=== PATIENT | male | born 1980 | race Caucasian/White ===

== ENCOUNTER 2019-06-10 16:47 | Emergency (ER) | payer OTHER, SELFPAY ==
[2019-06-10 16:49] VITALS: BP 129/84; PULSE 75; RESP 14; TEMP 36.3; O2SAT 100; BMI 25.2
--- NOTE | 2019-06-10 17:04 | RAD_ITS ---
STUDY: X-RAY - LEFT HAND REASON FOR EXAM: Male, 39 years old. Injury of the thumb, laceration TECHNIQUE: 3 view(s) of the hand. COMPARISON: None. FINDINGS: Normal radiocarpal articulation. Normal distal radioulnar joint. Normal visualized carpal bones. Normal carpal articulations Normal carpometacarpal articulation of the thumb. Normal second through fifth carpometacarpal joints. Normal metacarpi. Normal metacarpophalangeal joint of the thumb. Normal interphalangeal joint of the thumb. Normal proximal and distal phalanges of the thumb. Normal metacarpophalangeal joints of the second through fifth fingers. Normal proximal and distal interphalangeal joints of the second through fifth fingers. Normal phalanges of the second through fifth fingers. There is soft tissue swelling and laceration of the first digit. RAD/Hand Min 3 Views IMPRESSION: First digit/thumb soft tissue injury. No demonstrated fracture. Electronically Signed: Teddy Duran MD ([place]) at 17:32 EST , Service support ,
[2019-06-10] MEDS: Diphth,Pertuss(Acell),Tet Vac 0.5 ML Vial IM (18:01)
--- NOTE | 2019-06-10 18:13 | ED.DCSUM_ITS ---
History of Present Illness Informant: Patient, Significant Other Occurred: Today Mechanism/Context: Injury, Puncture Wound Onset: Today Context: Sudden Onset Timing: Continuous Quality of Pain: Sharp Location: left thumb Current Severity: Moderate Maximum Severity: Severe Worsened by: Movement Relieved by: Nothing Associated Symptoms: Negative for: Parasthesia, Weakness, Loss of Funtion Narrative: 39-year-old male who is right-hand dominant presents with a laceration to his left thumb that occurred just prior to arrival with a wood splitter. Patient has a large laceration but no numbness or tingling. No weakness. He has no other injuries. His pain is moderate. He is not on blood thinners. Unknown last tetanus. Tetanus Immunization: Unknown Prior similar symptoms: No Recent Illness/Hospitalization: No <Jake Lara - Last Filed: 06/10/19 18:13> <Jose Lira - Last Filed: 06/10/19 23:50> Chief Complaint: Laceration Past Medical History Prior records reviewed: Yes Past Medical History: None Surgical History: no surgical history Lives: With Family Smoking Status: Current every day smoker <Jake Lara - Last Filed: 06/10/19 18:13> <Jose Lira - Last Filed: 06/10/19 23:50> - Allergies and Home Meds Allergies/Adverse Reactions: Allergies No Known Allergies Allergy (Verified 06/10/19 16:49) Primary Care Physician: Care Physician,No Primary [Primary Care Provider] - Review of Systems All systems negative except as indicated Musculoskeletal: Reports: Swelling, Extremity Pain Skin: Reports: Wounds Neurological: Denies: Weakness, Parasthesia, Numbness <Jake Lara - Last Filed: 06/10/19 18:13> Physical Exam Vital Signs/Narrative: Vital Signs Temp Pulse Resp BP Pulse Ox 06/10/19 16:49 97.3 F L 75 14 129/84 H 100 Inital Vital Signs reviewed: Yes Left Finger: - - 4 cm laceration to the left thumb. Finger pad. Mostly on the lateral aspect. No nail involvement. Normal capillary refill and sensation as well as normal two-point discrimination. Normal flexion and extension actively at the IP joint. Normal flexion extension abduction and adduction at the MCP. No tenderness at the base of the first metacarpal. There is no other injury of the hand noted General: Well nourished, Well developed Head: Normocephalic, Atraumatic Eyes: Perrl, EOMI ENT: No Trauma Cardiovascular: Regular rate, Regular rhythm, No murmurs Respiratory: No distress, CTA bilaterally, Chest nontender Back: Nontender Skin: Trauma - 4 cm laceration left thumb as above Neurological: Alert, Oriented x3 <Jake Lara - Last Filed: 06/10/19 18:13> Diagnostic/Tx/Re-eval - Medical Decision Making Tetanus updated. X-ray left thumb shows no acute bony abnormality. The patient's thumb was anesthetized with a digital block with lidocaine. Wound was explored. No foreign bodies noted or arterial bleeding or tendon or ligament injury. Sutures were then used to approximate wound. Patient was inst ructed on proper wound care patient was also given signs of infection to monitor for. He was placed in a dressing with bacitracin. He was advised to have sutures removed in 7 to 10 days. <Jake Lara - Last Filed: 06/10/19 18:13> - Medical Decision Making Patient was seen with me. I did a [id number] examination with the patient. Patient presents with a laceration to his left thumb that occurred tonight. Patient was using a log splitter when he got his thumb caught. Patient denies any paresthesias or weakness. Patient denies any other injuries. Patient states his last tetanus was more than 5 years ago. Vital signs are stable. Patient is afebrile. Patient is in no acute distress. Examination of the left thumb reveals a 4 cm full-thickness laceration over the pad of the left thumb. There is moderate gapping of the wound margins. There is no bony crepitance or step-off. There is good range of motion. Sensation was intact to light touch in all digits. Capillary refill was less than 2 seconds in all digits. X-rays of the left thumb were obtained. There is no acute fracture. The wound was cleaned and explored. The wound was closed with 6 simple interrupted sutures. Patient was instructed to follow-up with his primary care physician in 7 to 10 days for wound recheck and suture removal. Patient understood and was agreeable with the plan. All questions were answered. <Jose Lira - Last Filed: 06/10/19 23:50> Procedures - Lacerations No standard instances Depth: Skin Shape: Linear Prep: Sterile Conditions, Chlorhexadine Laceration Repair: Lidocaine - 10 cc lidocaine used total for digital block, Nerve block Irrigated (ml): 120 Number of Sutures/Rochelle: 6 Suture Information: Ethilon, Simple, 4-0 <Jake Lara - Last Filed: 06/10/19 18:13> Disposition: Home <Jake Lara - Last Filed: 06/10/19 18:13> ED Disposition <Jake Lara - Last Filed: 06/10/19 18:13> <Jose Lira - Last Filed: 06/10/19 23:50> - Plan for ED Patient: Disposition: Home or Assisted Living Diagnosis: Laceration of left thumb without damage to nail Instructions: LACERATION, Extrem (Suture, Staple or Tape) Referrals: Care Physician,No Primary [Primary Care Provider] -
--- NOTE | 2019-06-10 18:35 | ED.RN ---
DISCHARGE INSTRUCTIONS GIVEN TO AND REVIEWED WITH PATIENT, PATIENT DENIES QUESTIONS OR CONCERNS AND VOICES UNDERSTANDING OF DISCHARGE INSTRUCTIONS. PT AMBULATES OUT OF ROOM WITHOUT ISSUE.
[2019-06-10] MEDS: BACITRACIN 15 GM Tube 1 APPLIC TOPICAL (18:38)
== END 2019-06-10 18:34 | disposition home or self-care (01) ==
PROVIDERS: Emergency Provider Physician Assistant Medical
DX: S61.012A Laceration without foreign body of left thumb without damage to nail, initial encounter (principal); W26.8XXA Contact with other sharp object(s), not elsewhere classified, initial encounter; Y93.89 Activity, other specified; F17.200 Nicotine dependence, unspecified, uncomplicated
CPT/HCPCS: 12002; 73130; 90471; 90715; 99283

== ENCOUNTER → 2023-12-19 | Outpatient (CLI) | payer OTHER, SELFPAY ==
[2023-12-19 11:14] LABS: Absolute Lymphocyte Count 0.74 X10^3/uL (0.83-4.51); Absolute Neutrophil Count 3.5 X10^3/uL (2.0-7.7); Basophil# 0.04 X10^3/uL; Basophil% 0.8 % (0-1); Eosinophil# 0.02 X10^3/uL; Eosinophils% 0.4 % (0-5); Hematocrit 43.5 % (40-54); Lymphocyte # 0.74 X10^3/ul (0.83-4.51); Lymphocyte % 15.4 % (19-41); Mean Corp Hgb Conc 36.8 g/dL (32-36); Mean Corpuscular Hgb 31.4 pg (27.0-32.0); Mean Corpuscular Volume 85.3 fL (80-94); Monocyte# 0.48 X10^3/uL; NRBC Flagged by Analyzer 0 % (0-5); Platelet Count 227 K/mm3 (150-450); RBC Distribution Width CV 12.5 % (11.6-14.6); RBC Distribution Width SD 39.2 fl (35.1-43.9); White Blood Count 4.8 K/mm3 (4.4-11.0)
[2023-12-19 12:14] LABS: ALB/GLOB Ratio 1.6 RATIO (0.9-2.4); AST(SGOT) 23 U/L (15-37); Alanine Aminotransfer ALT/SGPT 31 U/L (16-61); Albumin, Serum 4.3 g/dL (3.2-5.0); Alkaline Phosphatase 87 U/L (45-117); Anion Gap 8 (5-15); BUN 13 mg/dL (7-18); BUN/Creat Ratio 16.8 RATIO (10-20); Calcium,Total 9.1 mg/dL (8.5-10.1); Chloride 102 mmol/L (98-107); Cholesterol 142 mg/dL (200); Creatinine, Serum 0.77 mg/dL (0.70-1.30); EST Glomerular Filtration Rate 116 mL/min (>60); Est Glom Filt Rate - Afr Amer 140 mL/min (>60); Globulin 2.7 g/dL (2.2-4.2); Glucose 102 mg/dL (74-106); High Density Lipoprotein 104 mg/dL; Potassium 3.9 mmol/L (3.5-5.1); Sodium Level 135 mmol/L (136-145); Thyroid Stim Hormone (TSH) 0.78 uIU/mL (0.358-3.74); Triglycerides 21 mg/dL; Very Low Density Lipoprotein 4 mg/dL (5-40)
[2023-12-19 18:51] LABS: Vitamin D,25 Hydroxy 39.4 ng/mL
== END | disposition home or self-care (01) ==
LOC: LAB 10:31
PROVIDERS: PCP Family Medicine; Referring Provider Family Medicine; Visit Provider Family Medicine
DX: Z13.1 Encounter for screening for diabetes mellitus (principal); I10 Essential (primary) hypertension; Z13.220 Encounter for screening for lipoid disorders
CPT/HCPCS: 36415; 80053; 80061; 82306; 84443; 85025